=== PATIENT | female | born 1965 | race African-American/Black ===

== ENCOUNTER 2018-05-13 05:42 | Inpatient (IN) | payer MEDICAID, OTHER ==
[~2018-05-13] VITALS: Ht 154.9 cm; Wt 84.8 kg
[2018-05-13 06:45] LABS: BASOPHILS % 1.2 % (0.0-2.0); EOSINOPHILS % 3.6 % (0.0-5.0); HEMATOCRIT. 37.1 % (36.0-48.0); HEMOGLOBIN. 11.5 g/dL (12.0-16.0); LYMPHOCYTES % 32.9 % (20.0-50.0); MEAN CORPUSCULAR HEMOGLOBIN 21.1 pg (28.0-32.0); MEAN PLATELET VOLUME 10.8 fl (7.4-10.4); MONOCYTES % 4.8 % (2.0-8.0); NEUTROPHILS % 57.5 % (40.0-76.0); PLATELET 225 x1000/uL (130-400); RED BLOOD CELL COUNT 5.45 mill/uL (4.2-5.4); RED CELL DISTRIBUTION WIDTH 15.2 % (11.6-14.6)
[2018-05-13] MEDS ORDERED: ASPIRIN 81MG TABLET PO ONE (06:45)
[2018-05-13] MEDS ORDERED: NITROGLYCERIN 0.4MG TABLET SL SL PRN (06:45)
[2018-05-13 06:48] LABS: CHLORIDE 107 mEq/L (98-107)
[2018-05-13 09:27] LABS: PLATELET ESTIMATE NORMAL
[2018-05-13] MEDS ORDERED: IOHEXOL-350 100 ML BOTTLE ONE (09:34)
[2018-05-13] MEDS ORDERED: HYDRALAZINE 20MG/ML VIAL IV ONE (10:00)
[2018-05-13] MEDS ORDERED: GUAIFENESIN 200MG/10ML SUGAR FREE UDC PO PRN (11:15)
[2018-05-13] MEDS ORDERED: DOCUSATE SODIUM 100MG CAPSULE PO PRN (11:15)
[2018-05-13] MEDS ORDERED: IPRATROPIUM/ALBUTEROL 0.5-3(2.5)MG/3ML NEB INH PRN (11:15)
[2018-05-13] MEDS ORDERED: ACETAMINOPHEN 325MG TABLET PO PRN (11:15)
[2018-05-13] MEDS ORDERED: LORAZEPAM 1MG TABLET PO PRN (11:15)
[2018-05-13] MEDS ORDERED: HYDROCODONE/ACETAMINOPHEN 5/325MG TABLET PO PRN (11:15)
[2018-05-13] MEDS ORDERED: ACETAMINOPHEN 650MG SUPP PR PRN (11:15)
[2018-05-13] MEDS ORDERED: ONDANSETRON HCL 4MG/2ML INJ IV PRN (11:15)
[2018-05-13] MEDS ORDERED: MAGNESIUM/ALUMINUM HYDROXIDE/SIMETHICONE 30ML UDC PO PRN (11:15)
[2018-05-13] MEDS ORDERED: NA PHOS,M-B/NA PHOS,DI-BA ENEMA 118ML PR PRN (11:15)
[2018-05-13] MEDS ORDERED: AMLODIPINE 5MG TABLET PO SCH (11:15)
[2018-05-13] MEDS ORDERED: DIPHENHYDRAMINE 50MG/ML VIAL IV PRN (11:15)
[2018-05-13] MEDS ORDERED: DEXTROSE 50% WATER 50ML SYRINGE IV PRN (11:15)
[2018-05-13] MEDS ORDERED: CLONIDINE 0.1MG TABLET PO PRN (11:15)
[2018-05-13] MEDS ORDERED: REGADENOSON 0.4 MG/5 ML IV ONE (15:15)
[2018-05-13] MEDS ORDERED: CLONIDINE 0.1MG TABLET PO NR (17:45)
[2018-05-13 19:59] LABS: CREATINE KINASE 271 IU/L (26-192)
[2018-05-13 20:00] LABS: CREATINE KINASE MB FRACTION 2.4 ng/mL (0.5-3.6)
[2018-05-13 23:15] VITALS: BP 124/70
[2018-05-13 23:30] VITALS: BP 124/70
[2018-05-13 23:45] LABS: CREATINE KINASE 250 IU/L (26-192)
[2018-05-13 23:47] LABS: CREATINE KINASE MB FRACTION 1.8 ng/mL (0.5-3.6)
[2018-05-14] MEDS ORDERED: DEXT 5%/0.45% NACL 1000ML 1,000 ML IV SCH
[2018-05-14] MEDS ORDERED: GLIP10TA10 PO (00:44)
[2018-05-14] MEDS ORDERED: METF-414 PO (00:44)
[2018-05-14] MEDS ORDERED: ASPI-1159 PO (00:44)
[2018-05-14] MEDS ORDERED: LEVOFLOXACIN 500MG PREMIX 100 ML IV SCH ×2 (02:00→21:00)
[2018-05-14 04:00] VITALS: BP 141/87
[2018-05-14] MEDS: BLOOD SUGAR DIAGNOSTIC STRIP TEST SCH ×2 (06:39→13:32)
[2018-05-14] MEDS: CLONIDINE 0.1MG TABLET PO SCH ×2 (06:39→14:00)
[2018-05-14 06:52] LABS: INR 1.1; PROTHROMBIN TIME 11.4 sec (9.1-11.1)
[2018-05-14 07:00] LABS: BASOPHILS % 1.5 % (0.0-2.0); EOSINOPHILS % 4.2 % (0.0-5.0); HEMATOCRIT. 35.2 % (36.0-48.0); HEMOGLOBIN. 10.9 g/dL (12.0-16.0); LYMPHOCYTES % 38.1 % (20.0-50.0); MEAN CORPUSCULAR HEMOGLOBIN 21.1 pg (28.0-32.0); MEAN CORPUSCULAR VOLUME 68.4 fL (81.0-99.0); MEAN PLATELET VOLUME 10.6 fl (7.4-10.4); MONOCYTES % 8.4 % (2.0-8.0); NEUTROPHILS % 47.8 % (40.0-76.0); PLATELET 213 x1000/uL (130-400); RED BLOOD CELL COUNT 5.15 mill/uL (4.2-5.4); RED CELL DISTRIBUTION WIDTH 15.5 % (11.6-14.6)
[2018-05-14 07:20] LABS: CHLORIDE 106 mEq/L (98-107)
[2018-05-14 07:29] LABS: LDL CHOLESTEROL 149 mg/dL (5-100)
[2018-05-14 07:32] LABS: HDL CHOLESTEROL 40 mg/dL (40-59); TOTAL IRON BINDING CAPACITY 316 ug/dL (250-450)
[2018-05-14 08:00] VITALS: BP 130/75
[2018-05-14] MEDS ORDERED: ASPIRIN 81MG EC TABLET PO SCH (09:00)
[2018-05-14] MEDS ORDERED: AMLODIPINE 5MG TABLET PO SCH (09:00)
[2018-05-14] MEDS ORDERED: ENOXAPARIN 30MG/0.3ML SYR SUBCUT SCH (09:00)
[2018-05-14] MEDS ORDERED: REGADENOSON 0.4 MG/5 ML IV ONE (10:47)
[2018-05-14 12:00] VITALS: BP 135/70
[2018-05-14] MEDS: INSULIN LISPRO 100 UNITS/ML SUBCUT SCH ×2 (12:00→13:10)
[2018-05-14 16:00] VITALS: BP 138/68
[2018-05-14 17:38] VITALS: BP 120/70
[2018-05-14] MEDS ORDERED: ATORVASTATIN CALCIUM 10MG TABLET PO SCH (21:00)
== END 2018-05-14 17:45 | disposition home or self-care (01) | DRG 139 ==
LOC: ER 05:42 → EDBEDREQTM 10:43 → EDBEDREQ 10:43 → CANRESERV 15:57 → ENRESERV 15:57 → SUPCPDRO 16:22 → ENRESERV 22:20 → 7WST 05-14 00:26
PROVIDERS: ADMIT Internal Medicine; ATTEND Internal Medicine
PROC: 4A02XM4 Measurement of Cardiac Total Activity, External Approach (ICD-10-PCS; principal; 2018-05-14)
PROC: 3E033HZ Introduction of Radioactive Substance into Peripheral Vein, Percutaneous Approach (ICD-10-PCS; 2018-05-14)
DX: J18.9 Pneumonia, unspecified organism (principal); I50.33 Acute on chronic diastolic (congestive) heart failure; E11.65 Type 2 diabetes mellitus with hyperglycemia; I20.0 Unstable angina; I11.0 Hypertensive heart disease with heart failure; D64.9 Anemia, unspecified; E66.9 Obesity, unspecified; E78.5 Hyperlipidemia, unspecified; F17.200 Nicotine dependence, unspecified, uncomplicated; Z79.84 Long term (current) use of oral hypoglycemic drugs; Z79.82 Long term (current) use of aspirin; Z79.899 Other long term (current) drug therapy; Z80.1 Family history of malignant neoplasm of trachea, bronchus and lung; Z82.49 Family history of ischemic heart disease and other diseases of the circulatory system; Z83.3 Family history of diabetes mellitus; Z68.35 Body mass index [BMI] 35.0-35.9, adult
CPT/HCPCS: 36415; 71045; 71275; 78452; 80061; 82550; 82553; 82728; 82962; 83036; 83540; 83550; 83880; 84443; 84484; 87804; 93005; 93017; 93306; 93970; 99291; A9500; J1650; J1815; J1956; J2785; Q9967

== ENCOUNTER 2022-10-09 02:49 | Emergency (ER) | payer MEDICAID, OTHER ==
[~2022-10-09] VITALS: Ht 154.9 cm; Wt 82.0 kg
[~2022-10-09 02:49] MED LIST: ASPI-1497 PO; METF-414 PO
[2022-10-09] MEDS ORDERED: IBUPROFEN 400MG TABLET PO ONE (06:45)
[2022-10-09 07:47] VITALS: BP 130/70
== END 2022-10-09 07:48 | disposition home or self-care (01) ==
LOC: ER 03:19
DX: M25.532 Pain in left wrist (principal); E11.9 Type 2 diabetes mellitus without complications; I10 Essential (primary) hypertension
CPT/HCPCS: 29125; 73100; 99283

== ENCOUNTER 2022-12-27 18:17 | Emergency (ER) | payer MEDICAID ==
[~2022-12-27] VITALS: Ht 154.9 cm; Wt 90.0 kg
[2022-12-27 18:43] VITALS: BP 149/81; PULSE 82; RESP 18; TEMP 98.2; O2SAT 99
== END 2022-12-27 22:59 | disposition home or self-care (01) ==
LOC: ER 18:21
DX: S90.32XA Contusion of left foot, initial encounter (principal); E11.9 Type 2 diabetes mellitus without complications; I10 Essential (primary) hypertension; Z98.890 Other specified postprocedural states; X58.XXXA Exposure to other specified factors, initial encounter; Y93.89 Activity, other specified; Y92.89 Other specified places as the place of occurrence of the external cause; Y99.8 Other external cause status
CPT/HCPCS: 73630; 99283